=== PATIENT | female | born 1955 | race Caucasian/White ===

== ENCOUNTER 2024-03-10 11:06 | Emergency (ER) | payer OTHER, SELFPAY ==
[2024-03-10 11:09] VITALS: BP 124/78
--- NOTE | 2024-03-10 12:33 | ED.GENMED ---
History of Present Illness
General
Chief Complaint: Skin Problem
Source: patient and per diem interpreter
Time Seen by Provider: 03/10/24 12:16
History of Present Illness
History of Present Illness:
68yoF with a history of hypertension presenting for evaluation of a rash x 3-4 days. Patient is Haitian speaking and history is assisted by an per diem interpreter. Patient was gardening outside and was exposed to poison magaly. She developed a rash the next
day. The rash is located on the bilateral arms and nose. The rash is itchy but not painful. She has been using hydrocortisone cream without improvement. The rash seems to be spreading so she decided to come to the ED. She is otherwise asymptomatic
and denies any fevers, shortness of breath, vomiting, diarrhea.
Phy Exam
Physical Exam
Physical Exam:
Scattered vesicular lesions in a linear distribution present in bilateral arms and nose consistent with contact dermatitis. No surrounding cellulitis or skin sloughing.
General Physical Exam
General Presentation: well appearing and no apparent distress
General age: appears stated age
General Skin: warm and dry
General Mental: alert
General Hydration: appears well hydrated
Cardiovascular Exam
Cardiovascular Exam: regular rate/rhythm
Heart Sounds: normal
Pulmonary Exam
Pulmonary Exam: lungs clear, no respiratory distress, no crackles and no wheezing
Course
Orders/Labs/Results
Orders:
Orders
03/10/24 12:33
Prednisone [Deltasone] 60 mg PO NOW STA
Vital Signs
Initial and Last Documented VS:
Initial Vital Signs
Temp Pulse Resp BP Pulse Ox
98 F 87 16 124/78 98
03/10/24 11:09 03/10/24 11:09 03/10/24 11:03/10/24 11:03/10/24 11:09
Last Documented Vital Signs
Temp Pulse Resp BP Pulse Ox
98 F 87 16 124/78 98
03/10/24 11:09 03/10/24 11:09 03/10/24 11:09 03/10/24 11:09 03/10/24 11:09
MDM/Problems Addressed
Differential Diagnosis Includes:
68yoF here with a rash x 3-4 days that she developed after gardening. She is well appearing with stable vitals. Exam is consistent with poison magaly dermatitis. No involvement of mucous membranes. No clinical signs of cellulitis. No evidence of SJS or
TEN.
She was started on a prednisone taper. Advised Benadryl PRN and calamine lotion. Advised f/u with PCP and return to the ED with any worsening symptoms. She was discharged in stable condition.
*Critical Care Note
Total Time (30-74mins, 75-104mins- exclusive of procedures): Not Applicable
ED Attending Note
-
Portions of this chart may have been created with voice recognition software.� Occasional wrong word or��sound alike� substitutions may have occurred due to the inherent limitations of voice recognition software.
Discharge Plan
Departure
Patient Disposition: Home (Routine Discharge)
Date of Disposition: 03/10/24
Time of Disposition: 12:32
Patient with high blood pressure during this ER visit?: No
Discharge Problem:
Poison magaly dermatitis
Instructions: Poison Magaly
Prescriptions:
New
prednisone 10 mg Tablet
10 mg PO DIRECTED Qty: 40 0RF
Rx Instructions:
Take 60mg PO daily x 2 days, 50mg daily x 2 days, 40mg daily x 2 days, 30mg daily x 2 days, 20mg daily x 2 days
Activity Restrictions/Additional Instructions:
Take prednisone as prescribed. Take Benadryl 25mg every 6 hours as needed for itching. You may apply calamine lotion.
Please follow-up with your family doctor. Return to the ER with any worsening symptoms.
Interventions
Interventions:
*Risk Screen - Suicide Last Done: 03/10/24 11:13
*General Assessment Last Done: 03/10/24 11:13
*Neglect/Abuse Screening Last Done: 03/10/24 11:13
ED- Fall Risk Assessment Last Done: 03/10/24 11:29
*ED COVID-19 Vaccine History Last Done: 03/10/24 12:53
*Nursing Disposition Last Done: 03/10/24 12:53
ED-Skin Assessment Last Done: 03/10/24 11:29
Discharge Date and Time
Discharge Date/Time: 03/10/24 12:54
Print Language: HUNGARIAN
[2024-03-10] MEDS: DELTASONE 60 MG PO (12:44)
== END 2024-03-10 12:54 | disposition home or self-care (01) ==
LOC: EMR 11:06
PROVIDERS: EMERGENCY PHYSICIAN Student in an Organized Health Care Education/Training Program; FAMILY PHYSICIAN Family Medicine
DX: L23.7 Allergic contact dermatitis due to plants, except food (principal)
CPT/HCPCS: 99283